=== PATIENT | female | born 1985 | race Caucasian/White ===

== ENCOUNTER 2017-01-19 05:56 | Day surgery (SDC) | payer OTHER ==
[2017-01-19] VITALS (13 sets, daily range): BP systolic 113–154; BP diastolic 70–85; PULSE 68–94; RESP 16–20; Ht 177.8 cm; Wt 76.0 kg
[~2017-01-19] VITALS: Ht 177.8 cm; Wt 76.0 kg
[2017-01-19] MEDS ORDERED: ESTR1TAB23 PO (07:41)
[2017-01-19] MEDS ORDERED: SPIR25TA PO (07:41)
[2017-01-19] MEDS ORDERED: PROG100C5 PO (07:42)
--- NOTE | 2017-01-19 08:37 | RADRPT ---
PROCEDURE: XR Chest. CLINICAL INDICATION: Preoperative . TECHNIQUE: Single frontal chest x-ray. COMPARISON: None. FINDINGS: The lungs are clear of acute infiltrates, edema, effusions, or masses.. The cardiomediastinal silho uette is unremarkable. The osseous structures are intact. IMPRESSION: No acute cardiopulmonary disease. RPTAT: GG .Jack Key MD, MD Date Time Electronically viewed and signed by .Jack Key MD, MD on 01/19/2017 08:37 .L/
[2017-01-19] MEDS ORDERED: POLYMYXIN/BACITRACIN 1L IRRIG ONE (09:33)
[2017-01-19] MEDS ORDERED: SODIUM CL BACTERIOSTATIC 30 ML INJ ONE (09:33)
[2017-01-19] MEDS ORDERED: PROPOFOL 20 ML ONE (09:34)
[2017-01-19] MEDS ORDERED: ONDANSETRON 4 MG INJ ONE (09:34)
[2017-01-19] MEDS ORDERED: MIDAZOLAM 1 MG/ML 2 ML INJ ONE (09:34)
[2017-01-19] MEDS ORDERED: HYDROmorphONE 2 MG/ML SYG ONE (09:34)
[2017-01-19] MEDS ORDERED: ROCURONIUM 50 MG INJ ONE (09:34)
[2017-01-19] MEDS ORDERED: METOCLOPRAMIDE 10 MG INJ ONE (09:35)
[2017-01-19] MEDS ORDERED: BUPIVACAINE 0.25%/EPI (SDV) 30 ML INJ ONE (09:35)
[2017-01-19] MEDS ORDERED: GENTAMICIN 80 MG INJ ONE (09:45)
[2017-01-19] MEDS ORDERED: CEFAZOLIN 1 GM INJ ONE (09:50)
[2017-01-19] MEDS ORDERED: HYDROmorphONE (0.2 MG/ML) 10ML SYG IV PRN ×3 (10:00)
[2017-01-19] MEDS ORDERED: DIPHENHYDRAMINE 50 MG INJ IV PRN (10:00)
[2017-01-19] MEDS ORDERED: METOCLOPRAMIDE 10 MG INJ IV PRN (10:00)
[2017-01-19] MEDS ORDERED: OXYCODONE/ACETAMINOPHEN (5/325) TAB PO PRN ×3 (10:00→12:00)
[2017-01-19] MEDS ORDERED: ONDANSETRON 4 MG INJ IV PRN ×2 (10:00→12:00)
[2017-01-19] MEDS ORDERED: BUPIVACAINE LIPOSOME/PF 266 MG/20 ML VIAL INFIL SCH (10:00)
[2017-01-19] MEDS ORDERED: MEPERIDINE 25 MG INJ IV PRN (10:00)
[2017-01-19] MEDS ORDERED: NEOSTIGMINE 3 MG/3 ML SYRINGE ONE (11:25)
[2017-01-19] MEDS ORDERED: GLYCOPYRROLATE 0.4 MG INJ ONE (11:25)
--- NOTE | 2017-01-19 11:58 | OPR ---
Date/Time of Note Date/Time of Note DATE: 01/19/17 TIME: 11:52 Operative Report Free Text/Dictation Plastic Surgery Operative Report Preoperative diagnosis: Gender dysphoria disorder Postoperative diagnosis: Same Procedure:bilateral implant reconstruction Surgeon:diamond Raphael.:n/a Anesthesia: gen EBL:min IV fluids: per flow sheet Findings: n/a Complications:none Dispo:home Indications for procedure: 31-year-old transgender male to female patient presents for bilateral breast reconstruction with implants. The risks, benefits , alternatives of performing this procedure were discussed with the patient including risks of bleeding, infection, wound healing problems, asymmetry, as well as implant related complications such as deflation, capsular contracture, rupture, and need for future revisions. The patient states that she understands these risks and would like to proceed with the procedure. All questions were answered, no guarantees were given with regards to the outcome of this procedure. Description of procedure: The patient was brought to the operating room at [facility] where general anesthesia was induced and the patient was prepped and draped in usual sterile fashion with ChloraPrep. A total of 3 cc of 0.25% Marcaine with 1: 200,000 epinephrine was injected into the planned incision site in each breast. Incision site was marked along the new planned inframammary fold position. Next, an incision was made in the right plan inframammary fold with the 15 blade, and dissection was carried out down to the pectoralis muscle with electrocautery. Pectoralis muscle was released on its inferior surface, and the subpectoral space was entered. A pocket was then created below the pectoralis muscle. Dissection proceeded medially, this superiorly, then laterally, and under direct visualization, the pectoralis muscle was released from lateral to medial along its inferior fibers. The pocket was irrigated with antibiotic irrigation, hemostasis was achieved with electrocautery, and then attention was turned to the left breast where a similar procedure was carried out. Incision was made with 15 blade, and dissection was carried out down to the pectoralis muscle with electrocautery. The pectoralis muscle was released along its inferior fibers, and then the subpectoral space was entered. The pocket was created underneath the pectoralis muscle in a similar fashion, and an electro cautery was used to divide the pectoralis muscle under direct visualization from lateral to medial. Hemostasis was achieved with electrocautery, and the pocket was irrigated antibiotic irrigation, and the pockets were inspected and found to be symmetric. A 3 5 0 cc sizer was inserted into the right breast, and this was too small. A 450 sizer was inserted into the left breast, and this was closer to the desired size. A 4 8 5 cc sizer was inserted into the right breast, and this was tight but was deemed to be able to close without undue tension. Therefore, final adjustments were made to the pockets, the sizer was inserted into the left breast and it was symmetric to the right breast. Therefore, a final round of hemostasis and antibiotic irrigation was carried out, gloves were changed, and then an [employer]an SCF 485cc implant SN [id number] was opened, rinsed in antibiotic irrigation, and was inserted into the left breast with minimal touch technique. The same size and style implant serial #[id number] was inserted into the right breast with minimal touch technique. The patient was sat up on the operating room table, the breasts were symmetric, and therefore the patient was sat back down. A deep layer of tissue on Jeannette's fascia was closed with 3-0 Vicryl suture followed by 3-0 Vicryl suture on the dermis and 4- 0 Vicryl suture on the skin and skin adhesive. The patient tolerated procedure well, there were no complications, follow-up information and wound care instructions were given. BELINDA HERNANDEZ MD Jan 19, 2017 11:58
--- NOTE | 2017-01-19 11:59 | HPN ---
Date/Time of Note Date/Time of Note DATE: 01/19/17 TIME: 11:59 Interval H&P Admission Note Pt. seen H&P reviewed: No system changes BELINDA HERNANDEZ MD Jan 19, 2017 11:59
[2017-01-19] MEDS ORDERED: morphine 2 MG INJ IV PRN (12:00)
== END 2017-01-19 14:55 | disposition home or self-care (01) ==
LOC: SDS 05:56 → EDSTATUS 10:30 → SDS 14:55
PROVIDERS: ATTEND Surgery Plastic and Reconstructive Surgery
DX: F64.9 Gender identity disorder, unspecified (principal)
CPT/HCPCS: 19325; 71010; C1789; C9290; J0690; J1170; J1580; J2250; J2405; J2710; J2765; Z7512; Z7610